=== PATIENT | female | born 1935 | race Caucasian/White ===

== ENCOUNTER 2023-08-06 16:44 | Emergency (ER) | payer MEDICARE, SELFPAY ==
[2023-08-06 16:52] VITALS: BP 184/89
[2023-08-06 17:24] LABS: % Basophils 0.6 % (0-2); % Eosinophils 1.5 % (0-6); % Immature Granulocytes 0.2 % (0-0.5); % Lymphocytes 18.6 % (20.5-51.1); % Monocytes 5.8 % (1.7-9.3); % Neutrophils 73.3 % (42.2-75.2); Absolute Basophils 0.1 10^3/uL (0-0.2); Absolute Eosinophils 0.1 10^3/uL (0-0.7); Absolute Lymphocytes 1.6 10^3/uL (1.2-3.4); Absolute Monocytes 0.5 10^3/uL (0.1-0.6); Absolute Neutrophils 6.1 10^3/uL (1.4-6.5); Hematocrit 41.7 % (37.0-47.0); Hemoglobin 13.5 g/dL (12.0-16.0); Mean Corp Hgb Conc. 32.4 g/dL (33.0-37.0); Mean Corpuscular Hgb 29.9 pg (27.0-31.0); Mean Corpuscular Volume 92.3 fL (81.0-99.0); Mean Platelet Volume 9.3 fL (7.4-10.4); Nucleated Red Blood Cells % 0 %; Platelet Count 257 10^3/uL (130-400); Red Blood Cell Count 4.52 10^6/uL (4.20-5.40); Red Cell Dist. Width 12.9 % (11.5-14.5); White Blood Cell Count 8.4 10^3/uL (4.8-10.8)
[2023-08-06 17:39] LABS: ALT (SGPT) 14 U/L (0-35); AST (SGOT) 23 U/L (14-36); Albumin 4.6 g/dl (3.5-5.0); Alkaline Phosphatase 56 U/L (38-126); Blood Urea Nitrogen 27 mg/dl (7-17); Calcium 9.5 mg/dl (8.4-10.2); Carbon Dioxide 27 mmol/L (22-30); Chloride 102 mmol/L (98-107); Glucose 101 mg/dl (70-99); Potassium 4.2 mmol/L (3.5-5.1); Sodium 137 mmol/L (135-145); Total Bilirubin 0.5 mg/dl (0.2-1.3); eGFR 44.08
[2023-08-06 17:50] LABS: Troponin I < 0.012 ng/ml
[2023-08-06 18:53] VITALS: BP 179/83
[2023-08-06 18:58] VITALS: BP 193/75
[2023-08-06 19:00] VITALS: BP 188/73
--- NOTE | 2023-08-06 19:03 | ED.GENMED ---
History of Present Illness
General
Chief Complaint: Breathing Problem
Source: patient and family (Daughter)
Time Seen by Provider: 08/06/23 18:43
Travel History
Have you had any contact with someone who has COVID-19?: No
Do you have any symptoms of coronavirus? Fever > 100 degrees, chills, cough, shortness of breath, sore throat, loss of taste or smell, muscle aches, or headache?: No
History of Present Illness
History of Present Illness:
The patient is a very pleasant 87-year-old female with a past medical history of A-fib and pulmonary embolism on Eliquis. Patient reports that she just did not feel well today and experienced an abnormal pressure on the right side of her chest.
Patient also felt slightly shortness of breath. Patient was concerned because she has a history of extensive pulmonary emboli. She denies cough and fever. She denies leg pain and leg swelling.
Past History
Past History
ED Past Medical History: HTN, Hypercholesterolemia and Other (PE)
ED Past Surgical History: Other
Social History
Tobacco: Non-smoker
Alcohol: Other
Drug: None
Personal: Other
Living: with family
Employment: Other
Family History
Family History: Other
Review of Systems
Review of Systems
Allergies reviewed?: Yes
Other source history: family (Daughter who is at the bedside)
All Other Systems: ROS reviewed and negative except as documented in HPI and ROS
Constitutional: Reports no symptoms
EENT: Reports no symptoms
Respiratory: Reports trouble breathing
Cardiac: Reports chest pain
ABD/GI: Reports no symptoms
: Reports no symptoms
Musculoskeletal: Reports no symptoms
Skin: Reports no symptoms
Neurological: Reports no symptoms
Endocrine: Reports no symptoms
Hematologic/Lymphatic: Reports no symptoms
Psychiatric: Reports no symptoms
Phy Exam
Physical Exam
Physical Exam:
Physical Exam
General: no apparent distress, not acutely ill
Neck: supple. no meningeal signs. normal psoterior pharynx
Heart: s1/s2 regular rate and rhythm, no murmur. equal radial pulses.
Lungs: no acute respiratory distress. clear bilaterally
Abdomen: normal bowel sounds. not tender. no CVAT
Neuro: alert and oriented. no focal neurological deficits
Skin: no rash
Psychiatric: well kept. interactive and cooperative
Extremities: no edema. no calf tenderness. negative homans. good distal pulses
Scores
Heart Failure Risk
Heart Failure Risk Score: Not Applicable
Course
Orders/Labs/Results
Orders:
Orders
08/06/23 16:46
EKG [Electrocardiogram (*1)] Urgent
Reason for Study: Chest Pain
08/06/23 16:47
EKG- Treatment ONCE
08/06/23 17:01
Complete Blood Count/With Diff Urgent
Comprehensive Metabolic Panel Urgent
Troponin I Urgent
08/06/23 19:18
CT Chest Pe Study Urgent
Comment:
Reason For Exam: R sided CP, SOB
Abnormal Lab Results
08/06/23
17:01
MCHC 32.4 L g/dL
(33.0-37.0)
Lymphocytes % 18.6 L %
(20.5-51.1)
BUN 27 H mg/dl
(7-17)
Creatinine 1.2 H mg/dL
(0.6-1.0)
Glucose 101 H mg/dl
(70-99)
08/06/23 17:01
08/06/23 17:01
Vital Signs
Initial and Last Documented VS:
Initial Vital Signs
Temp Pulse Resp BP Pulse Ox
97.7 F 72 18 184/89 97
08/06/23 16:52 08/06/23 16:52 08/06/23 16:52 08/06/23 16:52 08/06/23 16:52
Last Documented Vital Signs
Temp Pulse Resp BP Pulse Ox
97.7 F 69 14 188/73 100
08/06/23 16:52 08/06/23 19:00 08/06/23 19:00 08/06/23 19:00 08/06/23 19:00
MDM/Problems Addressed
Differential Diagnosis Includes:
Musculoskeletal chest wall pain, PE, pneumonia
MDM/Problems Addressed:
Patient presents with acute right-sided chest pain and shortness of breath
Chronic conditions affecting care:
Pulmonary emboli
Acute Exacerbation and/or Progression of Chronic Illness:
Patient may have acute PE
*Radiology
Radiology exam reviewed: radiology read reviewed
*Pulse Oximetry
Patient hypoxic: no
*EKG
Interpreted by ED Provider?: Yes
Interpretation: abnormal
Comparison EKG: changes noted
Rate: normal
Rhythm: sinus and PVC's
[place]: normal axis
Interval: normal interval
QRS Pattern: normal QRS
Ischemia: non-specific ST changes
*Financial Accounting Manager Interpretation
Rate: normal
Interpretation: normal
Rhythm: sinus
*Critical Care Note
Total Time (30-74mins, 75-104mins- exclusive of procedures): Not Applicable
Data Reviewed
Review of Other/Old Records Reveals: Discharge Summary (Discharge summary reviewed from 2022 when patient was admitted for A-fib with rapid ventricular rate)
Patient Management
Social determinants of health affecting care: Living situation and Strong social support
Escalation/DeEscalation of care consider admission/obs:
Patient remains well-appearing. It is doubtful to be acute coronary syndrome given that troponin is negative and patient has very atypical chest pain. CT shows no sign of PE, aortic dissection or pneumonia.
ED Attending Note
-
Portions of this chart may have been created with voice recognition software.� Occasional wrong word or��sound alike� substitutions may have occurred due to the inherent limitations of voice recognition software.
Discharge Plan
Departure
Patient Disposition: Home (Routine Discharge)
Date of Disposition: 08/06/23
Time of Disposition: 20:53
Patient with high blood pressure during this ER visit?: Yes
Condition: Good
Covid-19: Not Applicable
Discharge Problem:
Chest pain in adult
Instructions: Chest Pain CBC Follow Up, BLOOD PRESSURE
Prescriptions:
No Action
metoprolol succinate 50 mg tablet extended release 24 hr
50 mg PO DAILY
Citrucel 500 mg Tablet
500 mg PO DAILY
coenzyme Q10 [Co Q-10] 100 mg Capsule
100 mg PO HS
cholecalciferol (vitamin D3) [Vitamin D3] 50 mcg (2,000 unit) Tablet
50 mcg PO DAILY
simvastatin 20 mg Tablet
20 mg PO HS
prednisone 1 mg Tablet
3 mg PO DAILY
Eliquis 5 mg Tablet
5 mg PO BID Qty: 60 0RF
diltiazem HCl 120 mg Capsule,Extended Release 24hr
120 mg PO DAILY Qty: 30 0RF
Referrals:
NONE,* [Active] -
Interventions
Interventions:
*Risk Screen - Suicide Last Done: 08/06/23 19:03
*General Assessment Last Done: 08/06/23 19:03
*Neglect/Abuse Screening Last Done: 08/06/23 19:03
ED- Fall Risk Assessment Last Done: 08/06/23 21:34
*Nursing Disposition Last Done: 08/06/23 21:34
ED- Cardiac Assessment Last Done: 08/06/23 19:03
ED- Pulmonary Assessment Last Done: 08/06/23 19:03
Discharge Date and Time
Discharge Date/Time: 08/06/23 21:35
== END 2023-08-06 21:35 | disposition home or self-care (01) ==
LOC: EMR 16:44
PROVIDERS: Emergency Medicine; EMERGENCY PHYSICIAN Emergency Medicine; FAMILY PHYSICIAN Family Medicine
DX: R07.89 Other chest pain (principal); I10 Essential (primary) hypertension; I48.91 Unspecified atrial fibrillation; Z86.711 Personal history of pulmonary embolism; Z79.01 Long term (current) use of anticoagulants
CPT/HCPCS: 99285; 71275; 80053; 84484; 85025; 93005; Q9967

== ENCOUNTER 2024-01-21 16:38 | Emergency (ER) | payer MEDICARE, SELFPAY ==
[2024-01-21 16:51] VITALS: BP 173/84
[2024-01-21 17:14] LABS: % Basophils 0.6 % (0-2); % Immature Granulocytes 0.4 % (0-0.5); % Lymphocytes 16.6 % (20.5-51.1); % Monocytes 6.1 % (1.7-9.3); % Neutrophils 75.3 % (42.2-75.2); Absolute Basophils 0.1 10^3/uL (0-0.2); Absolute Eosinophils 0.1 10^3/uL (0-0.7); Absolute Lymphocytes 1.3 10^3/uL (1.2-3.4); Absolute Monocytes 0.5 10^3/uL (0.1-0.6); Absolute Neutrophils 5.9 10^3/uL (1.4-6.5); Hematocrit 39.5 % (37.0-47.0); Hemoglobin 13.2 g/dL (12.0-16.0); Mean Corp Hgb Conc. 33.4 g/dL (33.0-37.0); Mean Corpuscular Hgb 30.3 pg (27.0-31.0); Mean Corpuscular Volume 90.8 fL (81.0-99.0); Mean Platelet Volume 8.8 fL (7.4-10.4); Nucleated Red Blood Cells % 0 %; Platelet Count 243 10^3/uL (130-400); Red Blood Cell Count 4.35 10^6/uL (4.20-5.40); Red Cell Dist. Width 13.4 % (11.5-14.5); White Blood Cell Count 7.8 10^3/uL (4.8-10.8)
[2024-01-21 17:33] LABS: ALT (SGPT) 13 U/L (0-35); AST (SGOT) 25 U/L (14-36); Albumin 4.7 g/dl (3.5-5.0); Alkaline Phosphatase 52 U/L (38-126); Blood Urea Nitrogen 26 mg/dl (7-17); Calcium 9.7 mg/dl (8.4-10.2); Carbon Dioxide 26 mmol/L (22-30); Chloride 103 mmol/L (98-107); Glucose 106 mg/dl (70-99); Potassium 4.3 mmol/L (3.5-5.1); Sodium 141 mmol/L (135-145); Total Bilirubin 0.7 mg/dl (0.2-1.3); Total Protein 6.9 g/dl (6.3-8.2)
[2024-01-21 17:41] LABS: Troponin I < 0.012 ng/ml
[2024-01-21 18:10] VITALS: BP 177/73
--- NOTE | 2024-01-21 19:43 | ED.GENMED ---
History of Present Illness
General
Chief Complaint: Blood Pressure Problem
Source: patient
Time Seen by Provider: 01/21/24 17:55
History of Present Illness
History of Present Illness:
88-year-old female with past medical history of atrial fibrillation, hypertension, hyperlipidemia, PE, maintained on Eliquis, presenting to the emergency department for evaluation of elevated blood pressures at home over the last 3 days, patient
feeling a discomfort in her chest, contacted primary care provider who recommended patient come to the ER for further evaluation. Patient notes that she had been on diltiazem once in the morning and once in the evening but this was discontinued to
once in the morning only. Patient he said he headaches, visual changes, focal weakness or numbness, abdominal pain, nausea or vomiting or any other concerns.
Past History
Past History
ED Past Medical History: HTN, Hypercholesterolemia and Other (PE)
ED Past Surgical History: Other
Social History
Tobacco: Non-smoker
Alcohol: Other
Drug: None
Personal: Other
Living: with family
Employment: Other
Family History
Family History: Other
Review of Systems
Review of Systems
All Other Systems: ROS reviewed and negative except as documented in HPI and ROS
Phy Exam
Physical Exam
Physical Exam:
GENERAL: Alert , in no apparent distress
EYE: clear conjunctiva b/l
HEAD: NCAT
ENT: mmm.
CARDIAC: Regular rate and rhythm .
LUNGS: Clear breath sounds bilaterally, no acute respiratory distress, no wheezes/rales/rhonchi
ABDOMEN: Soft, without focal tenderness, no r/g, no cvat
NEUROLOGICAL: Alert and oriented
SKIN: Warm and dry, skin intact.
MUSCULOSKELETAL: trace ankle edema is baseline per patient, well perfused.
PSYCH: Normal and appropriate interaction.
Scores
Heart Failure Risk
Heart Failure Risk Score: Not Applicable
Heart Score for Chest Pain Patients
STEMI patient?: Not applicable
Withdrawal Assessment of Alcohol
Withdrawal Assessment Completed?: Not applicable
Course
Orders/Labs/Results
Orders:
Orders
01/21/24 16:55
Electrocardiogram (*1) Urgent
Reason for Study: Chest Pain
EKG- Treatment ONCE
01/21/24 17:05
Complete Blood Count/With Diff Urgent
Comprehensive Metabolic Panel Urgent
Troponin I Urgent
01/21/24 18:15
CR Chest - 2 Views Urgent
Comment:
Reason For Exam: chest discomfort
Abnormal Lab Results
01/21/24
17:05
Neutrophils % 75.3 H %
(42.2-75.2)
Lymphocytes % 16.6 L %
(20.5-51.1)
BUN 26 H mg/dl
(7-17)
Creatinine 1.3 H mg/dL
(0.6-1.0)
Glucose 106 H mg/dl
(70-99)
01/21/24 17:05
01/21/24 17:05
Vital Signs
Initial and Last Documented VS:
Initial Vital Signs
Temp Pulse Resp BP Pulse Ox
97.9 F 76 18 173/84 98
01/21/24 16:51 01/21/24 16:51 01/21/24 16:51 01/21/24 16:51 01/21/24 16:51
Last Documented Vital Signs
Temp Pulse Resp BP Pulse Ox
97.9 F 70 12 177/73 100
01/21/24 16:51 01/21/24 18:30 01/21/24 18:30 01/21/24 18:10 01/21/24 18:30
MDM/Problems Addressed
Differential Diagnosis Includes:
Hypertension, hypertensive urgency/emergency, less concern for ACS
MDM/Problems Addressed:
88-year-old female presenting emergency department for evaluation of elevated blood pressure at home, highest reading with a systolic of greater than 200 this morning. On arrival here patient's blood pressure is elevated although improved from a
systolic of 200. Patient did take her usual blood pressure medications today and in discussion with her primary care was told that it would be okay for her to take a second dose of diltiazem however she did not do this and came to the ER. Patient
does admit to feeling very anxious over her blood pressure as she has never had readings this high. Labs and EKG were initiated in triage and are at baseline. Negative troponin and nonischemic EKG. Will monitor patient in the ER and also obtain
chest x-ray. Will discuss with patient's primary care doctor to help facilitate continued outpatient management.
Chronic conditions affecting care: HTN
Acute Exacerbation and/or Progression of Chronic Illness: HTN
*Radiology
Radiology exam reviewed: radiology read reviewed
*Pulse Oximetry
Patient hypoxic: no
*EKG
Interpreted by ED Provider?: Yes
Comparison EKG: no changes
Heart Rate: 62
Rate: normal
Rhythm: sinus arrhythmia
[place]: normal axis
Ischemia: no ischemia
*Erosion Control Specialist Interpretation
Rate: normal
Rhythm: sinus and PVC's
*Critical Care Note
Total Time (30-74mins, 75-104mins- exclusive of procedures): Not Applicable
Patient Management
Discussion with other providers: PCP
Escalation/DeEscalation of care consider admission/obs:
Blood pressure does remain slightly elevated however patient is asymptomatic. Case was discussed with primary care provider who recommends patient take the diltiazem twice daily. Would like patient to contact the office in the morning and they
will help arrange for close follow-up.
ED Attending Note
-
Portions of this chart may have been created with voice recognition software.� Occasional wrong word or��sound alike� substitutions may have occurred due to the inherent limitations of voice recognition software.
Discharge Plan
Departure
Patient Disposition: Home (Routine Discharge)
Date of Disposition: 01/21/24
Time of Disposition: 19:43
Patient with high blood pressure during this ER visit?: Yes
Discharge Problem:
Hypertension
Instructions: High Blood Pressure (DC)
Prescriptions:
No Action
metoprolol succinate 50 mg tablet extended release 24 hr
50 mg PO DAILY
Citrucel 500 mg Tablet
500 mg PO DAILY
coenzyme Q10 [Co Q-10] 100 mg Capsule
100 mg PO HS
cholecalciferol (vitamin D3) [Vitamin D3] 50 mcg (2,000 unit) Tablet
50 mcg PO DAILY
simvastatin 20 mg Tablet
20 mg PO HS
prednisone 1 mg Tablet
3 mg PO DAILY
Eliquis 5 mg Tablet
5 mg PO BID Qty: 60 0RF
diltiazem HCl 120 mg Capsule,Extended Release 24hr
120 mg PO DAILY Qty: 30 0RF
Referrals:
Nolan Jacobs MD [Family Provider] -
Interventions
Interventions:
*Risk Screen - Suicide Last Done: 01/21/24 19:46
*General Assessment Last Done: 01/21/24 19:46
*Neglect/Abuse Screening Last Done: 01/21/24 19:46
*Nursing Disposition Last Done: 01/21/24 20:49
ED- Cardiac Assessment Last Done: 01/21/24 19:45
ED- Neurological Assessment Last Done: 01/21/24 19:45
ED- Pulmonary Assessment Last Done: 01/21/24 19:45
Discharge Date and Time
Discharge Date/Time: 01/21/24 20:49
Print Language: AMERICAN
== END 2024-01-21 20:49 | disposition home or self-care (01) ==
LOC: EMR 16:38
PROVIDERS: EMERGENCY PHYSICIAN Student in an Organized Health Care Education/Training Program; FAMILY PHYSICIAN Family Medicine
DX: I10 Essential (primary) hypertension (principal); R07.89 Other chest pain; I48.91 Unspecified atrial fibrillation; E78.00 Pure hypercholesterolemia, unspecified; Z79.01 Long term (current) use of anticoagulants
CPT/HCPCS: 99283; 71046; 80053; 84484; 85025; 93005

== ENCOUNTER → 2024-01-28 13:03 | Outpatient (REF) | payer MEDICARE, SELFPAY | LOC: RAD 13:03 | PROVIDERS: ATTENDING PHYSICIAN Family Medicine | DX: R06.02 Shortness of breath (principal) | CPT/HCPCS: 71275; Q9967 ==

== ENCOUNTER → 2024-01-30 09:53 | Outpatient (REF) | payer MEDICARE, SELFPAY | LOC: RAD 09:53 | PROVIDERS: ATTENDING PHYSICIAN Family Medicine | DX: M25.552 Pain in left hip (principal) | CPT/HCPCS: 73502 ==

== ENCOUNTER → 2024-02-19 13:46 | Outpatient (REF) | payer MEDICARE, SELFPAY | LOC: HWRAD 13:46 | PROVIDERS: ATTENDING PHYSICIAN Family Medicine | DX: R10.30 Lower abdominal pain, unspecified (principal); R10.2 Pelvic and perineal pain | CPT/HCPCS: 74176 ==

== ENCOUNTER 2024-04-29 17:49 | Emergency (ER) | payer MEDICARE, SELFPAY ==
[2024-04-29 18:01] VITALS: BP 176/97
--- NOTE | 2024-04-29 18:05 | ED.GENMED ---
ED Provider Triage
<Louie Peres Jr., PA-C - Last Filed: 04/29/24 18:06>
-
Patient seen by provider in Triage?: Seen in Triage
attestation: A medical screening examination has been initiated by a qualified medical provider. Based on the assessment performed at this time, it has been determined that an emergent medical condition may exist and the patient has been informed
that further medical evaluation and possible additional diagnostic testing may be needed.
HPI: 88-year-old female past medical history of PE currently taking Eliquis has not missed any doses. Coming in for chest pain starting yesterday ongoing. Some shortness of breath. Initial labs and chest x-ray ordered. Holding on CT scan at this
point concerning patient is taking Eliquis normal heart rate PE seems to be less likely.
GENERAL: Alert , in no apparent distress
EYE: No visual abnormalities.
NECK: Trachea midline
ENT: No visible abnormalities.
LUNGS: No acute respiratory distress
NEUROLOGICAL: Alert and oriented
SKIN: Skin intact. No visible changes.
MUSCULOSKELETAL: Moving extremities normally
PSYCH: Normal and appropriate interaction.
This is a medical evaluation conducted in person to initiate diagnostic evaluation and provide initial therapeutics. Please see further documentation by the treating clinician.
History of Present Illness
<Louie Peres Jr., PA-C - Last Filed: 04/29/24 18:06>
General
Chief Complaint: Chest Pain
Time Seen by Provider: 04/29/24 19:49
<OLIVIA Watson - Last Filed: 04/30/24 01:12>
General
Source: patient
Exam Limitations: none
History of Present Illness
History of Present Illness:
This is a 88 year old female that comes in with c/o SOB. States that she is on Medication for atrial fib. States that for the past couple days she has a difficult time taking a deep breath. States that she doesn't have chest pain but it doesn't
feel right. State that she does feel SOB. Denies any fever, chills, chest pain, cough, abd pain, nausea, vomiting, diarrhea, headache, dizziness, urinary burning.
Past History
<Louie Peres Jr., PA-C - Last Filed: 04/29/24 18:06>
Past History
ED Past Medical History: HTN, Hypercholesterolemia and Other (PE)
ED Past Surgical History: Other
Social History
Tobacco: Non-smoker
Alcohol: Other
Drug: None
Personal: Other
Living: with family
Employment: Other
Family History
Family History: Other
<OLIVIA Watson - Last Filed: 04/30/24 01:12>
Past History
ED Past Medical History: Arrthythmia (Atrial fib), Psychiatric (Anxiety, ) and Other (PE , Diverticulitis, UTI, )
Social History
Tobacco: Former smoker
Alcohol: Daily ([employer] 2 oz)
Personal:
Living: alone
Review of Systems
<OLIVIA Watson - Last Filed: 04/30/24 01:12>
Review of Systems
All Other Systems: ROS reviewed and negative except as documented in HPI and ROS
Constitutional: Reports no symptoms; Denies fever or chills
EENT: Reports no symptoms
Respiratory: Reports trouble breathing; Denies cough
Cardiac: Reports no symptoms; Denies chest pain
ABD/GI: Reports no symptoms; Denies abdominal pain, nausea, vomiting or diarrhea
: Reports no symptoms; Denies dysuria, frequency or urgency
Musculoskeletal: Reports no symptoms
Skin: Reports no symptoms
Neurological: Reports no symptoms; Denies dizzy or headache
Psychiatric: Reports no symptoms
Phy Exam
<OLIVIA Watson - Last Filed: 04/30/24 01:12>
General Physical Exam
General Presentation: well appearing and no apparent distress
General age: appears stated age
General Skin: warm and dry
General Habitus: elderly
General Mental: alert
General Hydration: appears well hydrated
ENT Exam
ENT Exam: TM's normal, pharynx normal and neck supple
Eye Exam
Eye Exam: EOMI
Cardiovascular Exam
Cardiovascular Exam: regular rate/rhythm, no edema and normal peripheral pulses
Pulmonary Exam
Pulmonary Exam: lungs clear, no respiratory distress, no rales, chest non tender, no crackles, no rhonchi, no wheezing and no cough
Gastrointestinal Exam
Gastrointestinal Exam: normal bowel sounds, non tender, soft, no organomegaly, no pulsatile mass and non distended
Musculoskeletal Exam
Musculoskeletal Exam: full ROM and no edema
Skin Exam
Skin Exam: normal color, warm/dry, no rash and no petechia
Psychiatric Exam
Psychiatric Exam: normal mood/affect
Scores
<OLIVIA Watson - Last Filed: 04/30/24 01:12>
Heart Score for Chest Pain Patients
STEMI patient?: No
History: Slightly or Non-Suspicious
ECG: Normal
Age: >/= 65 years
Risk Factors: 1 or 2 Risk Factors
Troponin: </= Normal Limit
Heart Score for Chest Pain Patients: 3
Heart Score Risk: 2.5% MACE over next 6 weeks
Course
<Louie Peres Jr., PA-C - Last Filed: 04/29/24 18:06>
Orders/Labs/Results
Orders:
Orders
04/29/24 17:55
EKG [Electrocardiogram (*1)] Urgent
Reason for Study: Chest Pain
EKG- Treatment ONCE
04/29/24 18:04
CR Chest - 2 Views Urgent
Comment:
Reason For Exam: cp
04/29/24 18:07
Complete Blood Count/With Diff Urgent
Comprehensive Metabolic Panel Urgent
Magnesium Urgent
NT-proBNP Urgent
Troponin I Urgent
04/29/24 20:23
D-Dimer Urgent
04/29/24 21:18
Troponin I Urgent
04/29/24 23:18
Urinalysis Reflex To Culture Urgent
Date Specimen was Collected: 04/29/24
Time Specimen was Collected: 23:09
04/30/24 00:02
CT Chest Pe Study Urgent
Reason For Exam: SOB
Abnormal Lab Results
04/29/24 04/29/24
18:07 20:23
RBC 4.17 L 10^6/uL
(4.20-5.40)
Lymphocytes % 19.2 L %
(20.5-51.1)
D-Dimer 1.10 H ug/mlFEU
(0.00-0.50)
BUN 26 H mg/dl
(7-17)
Creatinine 1.2 H mg/dL
(0.6-1.0)
Glucose 108 H mg/dl
(70-99)
04/29/24 18:07
04/29/24 18:07
Vital Signs
Initial and Last Documented VS:
Initial Vital Signs
Temp Pulse Resp BP Pulse Ox
98.1 F 72 18 176/97 100
04/29/24 18:01 04/29/24 18:01 04/29/24 18:01 04/29/24 18:01 04/29/24 18:01
Last Documented Vital Signs
Temp Pulse Resp BP Pulse Ox
97.4 F 70 17 174/81 98
04/30/24 00:25 04/30/24 00:25 04/30/24 00:25 04/30/24 00:25 04/30/24 00:25
<OLIVIA Watson - Last Filed: 04/30/24 01:12>
Orders/Labs/Results
Orders:
Orders
04/29/24 17:55
EKG [Electrocardiogram (*1)] Urgent
Reason for Study: Chest Pain
EKG- Treatment ONCE
04/29/24 18:04
CR Chest - 2 Views Urgent
Comment:
Reason For Exam: cp
04/29/24 18:07
Complete Blood Count/With Diff Urgent
Comprehensive Metabolic Panel Urgent
Magnesium Urgent
NT-proBNP Urgent
Troponin I Urgent
04/29/24 20:23
D-Dimer Urgent
04/29/24 21:18
Troponin I Urgent
04/29/24 23:18
Urinalysis Reflex To Culture Urgent
Date Specimen was Collected: 04/29/24
Time Specimen was Collected: 23:09
04/30/24 00:02
CT Chest Pe Study Urgent
Reason For Exam: SOB
Abnormal Lab Results
04/29/24 04/29/24
18:07 20:23
RBC 4.17 L 10^6/uL
(4.20-5.40)
Lymphocytes % 19.2 L %
(20.5-51.1)
D-Dimer 1.10 H ug/mlFEU
(0.00-0.50)
BUN 26 H mg/dl
(7-17)
Creatinine 1.2 H mg/dL
(0.6-1.0)
Glucose 108 H mg/dl
(70-99)
04/29/24 18:07
04/29/24 18:07
Dehydration. Glucose nonfasting, Troponin <0.012, Pro-BNP 750
Second Troponin <0.012. D-dimer 1.10
Vital Signs
Initial and Last Documented VS:
Initial Vital Signs
Temp Pulse Resp BP Pulse Ox
98.1 F 72 18 176/97 100
04/29/24 18:01 04/29/24 18:01 04/29/24 18:01 04/29/24 18:01 04/29/24 18:01
Last Documented Vital Signs
Temp Pulse Resp BP Pulse Ox
97.4 F 70 17 174/81 98
04/30/24 00:25 04/30/24 00:25 04/30/24 00:25 04/30/24 00:25 04/30/24 00:25
<OLIVIA Watson - Last Filed: 04/30/24 01:12>
MDM/Problems Addressed
Differential Diagnosis Includes:
PE, CHF, CAD
MDM/Problems Addressed:
This is a 88 year old female that comes in with c/o having SOB. States that she feels that she can't take a deep breath. State that she has no chest pain.
Will check labs, Chest x-ray, D-dimer.
Back into see patient. Explained that the D-dimer is elevated. Will get CT of the chest.
back into see patient. Explained that her CT of the chest is normal. Will sent a prescription to her pharmacy for Protonix. Patient can follow up with the family doctor and her Documentation Nurse. Will discharge home.
Chronic conditions affecting care:
PE,
Acute Exacerbation and/or Progression of Chronic Illness:
NA
<OLIVIA Watson - Last Filed: 04/30/24 01:12>
*Radiology
Radiology exam reviewed: radiology read reviewed (CT night hawk-Adequate technical study. No acute pulmonary embolism. No Thoracic aortic aneurysm or acute aortic dissection. Clear lungs. Incidentals: Calcified coronary atherosclerosis. No acute
osseious abnormality. No acute abnormality within the visualized abdomen. No thoracic lymphadenopathy or) and other (CT cont- suspicious lymph nodes. )
*Pulse Oximetry
Patient hypoxic: no
*EKG
Interpreted by ED Provider?: Yes
Heart Rate: 67
Rate: normal
Rhythm: sinus
[place]: normal axis
Interval: normal interval
QRS Pattern: normal QRS
Ischemia: no ischemia
*Stain Maker Interpretation
Rate: Stain Maker- N/A
*Critical Care Note
Total Time (30-74mins, 75-104mins- exclusive of procedures): Not Applicable
ED Attending Note
<Louie Peres Jr., PA-C - Last Filed: 04/29/24 18:06>
-
Portions of this chart may have been created with voice recognition software.� Occasional wrong word or��sound alike� substitutions may have occurred due to the inherent limitations of voice recognition software.
Discharge Plan
Departure
Patient Disposition: Home (Routine Discharge)
Date of Disposition: 04/30/24
Time of Disposition: 01:07
Patient with high blood pressure during this ER visit?: Yes
Condition: Good
Covid-19: Not Applicable
Discharge Problem:
Shortness of breath
Instructions: Shortness of breath in adults - ED discharge instructions, BLOOD PRESSURE
Prescriptions:
New
pantoprazole [Protonix] 40 mg tablet,delayed release (DR/EC)
40 mg PO DAILY Qty: 10 0RF
No Action
metoprolol succinate 50 mg tablet extended release 24 hr
50 mg PO DAILY
Citrucel 500 mg Tablet
500 mg PO DAILY
coenzyme Q10 [Co Q-10] 100 mg Capsule
100 mg PO HS
cholecalciferol (vitamin D3) [Vitamin D3] 50 mcg (2,000 unit) Tablet
50 mcg PO DAILY
simvastatin 20 mg Tablet
20 mg PO HS
prednisone 1 mg Tablet
3 mg PO DAILY
Eliquis 5 mg Tablet
5 mg PO BID Qty: 60 0RF
diltiazem HCl 120 mg Capsule,Extended Release 24hr
120 mg PO DAILY Qty: 30 0RF
Referrals:
Nolan Jacobs MD [Family Provider] - Follow up in 2-3 days
Activity Restrictions/Additional Instructions:
As discussed, your Blood work shows that you are dehydrated. Please increase your water intake to 8-8oz glasses daily. Your CT of the chest is negative for any acute process. You have had a prescription for Protonix sent to your Pharmacy. You may
use this daily and see if this helps. Please follow up with the family doctor and your Documentation Nurse for further evaluation. IF YOU HAVE INCREASED OR CHANGING PAIN, OR YOU HAVE ANY OTHER CONCERNS PLEASE RETURN TO THE EMERGENCY ROOM.
Interventions
Interventions:
*Risk Screen - Suicide Last Done: 04/29/24 18:01
*General Assessment Last Done: 04/29/24 18:01
*Neglect/Abuse Screening Last Done: 04/29/24 18:01
ED- Fall Risk Assessment Last Done: 04/29/24 20:25
*ED COVID-19 Vaccine History Last Done: 04/29/24 18:01
ED- Cardiac Assessment Last Done: 04/29/24 20:25
Discharge Date and Time
Print Language: [place]THER[place] IRISH
[2024-04-29 18:19] LABS: % Basophils 0.4 % (0-2); % Eosinophils 1.7 % (0-6); % Immature Granulocytes 0.3 % (0-0.5); % Lymphocytes 19.2 % (20.5-51.1); % Monocytes 6.6 % (1.7-9.3); % Neutrophils 71.8 % (42.2-75.2); Absolute Eosinophils 0.2 10^3/uL (0-0.7); Absolute Lymphocytes 1.7 10^3/uL (1.2-3.4); Absolute Monocytes 0.6 10^3/uL (0.1-0.6); Absolute Neutrophils 6.5 10^3/uL (1.4-6.5); Hematocrit 37.6 % (37.0-47.0); Hemoglobin 12.6 g/dL (12.0-16.0); Mean Corp Hgb Conc. 33.5 g/dL (33.0-37.0); Mean Corpuscular Hgb 30.2 pg (27.0-31.0); Mean Corpuscular Volume 90.2 fL (81.0-99.0); Mean Platelet Volume 8.7 fL (7.4-10.4); Nucleated Red Blood Cells % 0 %; Platelet Count 236 10^3/uL (130-400); Red Blood Cell Count 4.17 10^6/uL (4.20-5.40); Red Cell Dist. Width 13.2 % (11.5-14.5)
[2024-04-29 18:36] LABS: ALT (SGPT) 16 U/L (0-35); AST (SGOT) 24 U/L (14-36); Albumin 4.5 g/dl (3.5-5.0); Alkaline Phosphatase 45 U/L (38-126); Blood Urea Nitrogen 26 mg/dl (7-17); Calcium 9.3 mg/dl (8.4-10.2); Carbon Dioxide 26 mmol/L (22-30); Chloride 104 mmol/L (98-107); Glucose 108 mg/dl (70-99); Magnesium 2.2 mg/dl (1.6-2.3); Potassium 4.3 mmol/L (3.5-5.1); Sodium 138 mmol/L (135-145); Total Bilirubin 0.4 mg/dl (0.2-1.3)
[2024-04-29 18:43] LABS: NT-proBNP 750 pg/ml; Troponin I < 0.012 ng/ml
[2024-04-29 18:45] LABS: eGFR 43.81
[2024-04-29 20:25] VITALS: BMI 19.7
[2024-04-29 21:49] LABS: Troponin I < 0.012 ng/ml
[2024-04-29 23:37] LABS: Urine Albumin Negative (Neg - Trace); Urine Bilirubin Negative (Negative); Urine Character Clear (Clear); Urine Color Yellow; Urine Glucose Negative (Negative); Urine Ketone Negative (Negative); Urine Leukocyte Negative (Negative); Urine Nitrite Negative (Negative); Urine Occult Blood Negative (Negative); Urine Urobilinogen Negative (Neg - 1+)
[2024-04-30 00:25] VITALS: BP 174/81
== END 2024-04-30 01:33 | disposition home or self-care (01) ==
LOC: EMR 17:49
PROVIDERS: Clinical Nurse Specialist Family Health; Physician Assistant; EMERGENCY PHYSICIAN Emergency Medicine; FAMILY PHYSICIAN Family Medicine
DX: R06.02 Shortness of breath (principal); E78.00 Pure hypercholesterolemia, unspecified; I10 Essential (primary) hypertension; Z86.711 Personal history of pulmonary embolism; Z79.01 Long term (current) use of anticoagulants
CPT/HCPCS: 99285; 71046; 71275; 80053; 81003; 83735; 83880; 84484; 85025; 85379; 93005; Q9967

== ENCOUNTER → 2024-05-23 08:44 | Outpatient (REF) | payer MEDICARE, SELFPAY | LOC: RAD 08:44 | PROVIDERS: ATTENDING PHYSICIAN Family Medicine | DX: R10.2 Pelvic and perineal pain (principal); R10.30 Lower abdominal pain, unspecified | CPT/HCPCS: 74177; Q9967 ==

== ENCOUNTER → 2024-10-16 12:14 | Outpatient (REF) | payer MEDICARE, SELFPAY | LOC: RCS 12:14 | PROVIDERS: ATTENDING PHYSICIAN Family Medicine | DX: R07.9 Chest pain, unspecified (principal) | CPT/HCPCS: 78452; 93017; A9500; J2785 ==

== ENCOUNTER → 2024-11-24 15:59 | Outpatient (REF) | payer MEDICARE, SELFPAY | LOC: RAD 15:59 | PROVIDERS: ATTENDING PHYSICIAN Family Medicine | DX: R06.02 Shortness of breath (principal); R07.9 Chest pain, unspecified | CPT/HCPCS: 71260; Q9967 ==

== ENCOUNTER → 2024-12-23 13:05 | Outpatient (REF) | payer MEDICARE, SELFPAY | LOC: RSP 13:05 | PROVIDERS: ATTENDING PHYSICIAN Family Medicine | DX: R06.02 Shortness of breath (principal) | CPT/HCPCS: 88738; 94010; 94727; 94729 ==

== ENCOUNTER → 2025-02-25 13:43 | Outpatient (REF) | payer MEDICARE, SELFPAY | LOC: WDC 13:43 | PROVIDERS: ATTENDING PHYSICIAN Family Medicine | DX: Z12.31 Encounter for screening mammogram for malignant neoplasm of breast (principal) | CPT/HCPCS: 77063; 77067 ==

== ENCOUNTER → 2025-03-30 09:58 | Outpatient (REF) | payer MEDICARE, SELFPAY | LOC: RAD 09:58 | PROVIDERS: ATTENDING PHYSICIAN Family Medicine | DX: Z13.820 Encounter for screening for osteoporosis (principal); M85.88 Other specified disorders of bone density and structure, other site; Z78.0 Asymptomatic menopausal state | CPT/HCPCS: 77080 ==